=== PATIENT | male | born 1970 | race African-American/Black ===

== ENCOUNTER 2018-07-31 14:05 | Emergency (ER) | payer SELFPAY ==
[~2018-07-31] VITALS: Ht 172.7 cm; Wt 106.1 kg
[~2018-07-31 14:05] MED LIST: AMOX1TAB61 PO; AZIT250T6 PO; OXYC1TAB15 PO; TRIA1TAB3 PO
[2018-07-31] MEDS ORDERED: ONDANSETRON PF 4 MG/2 ML VIAL. IV ONE (14:30)
[2018-07-31] MEDS ORDERED: ASPIRIN 325 MG TABLET PO ONE (14:30)
[2018-07-31] MEDS ORDERED: ORPHENADRINE CITRATE 60 MG/2 ML VIAL. IV ONE (14:45)
[2018-07-31] MEDS ORDERED: DEXAMETHASONE SOD PHOS 20 MG/5 ML VIAL. IV ONE (14:45)
[2018-07-31 14:50] LABS: BASO # 0.1 x10^3/uL (0.0-0.2); BASO % 1 % (0-3); EOS # 0.1 x10^3/uL (0.0-0.7); EOS % 1 % (0-3); HEMATOCRIT 42.8 % (39.0-53.0); HEMOGLOBIN 14.9 g/dL (13.0-17.5); LYMPH # 2.2 x10^3/uL (1.0-4.8); LYMPH % 24 % (24-48); MEAN CORPUSCULAR HEMOGLOBIN 31 pg (25-35); MEAN CORPUSCULAR HGB CONC 35 g/dL (31-37); MEAN CORPUSCULAR VOLUME 89 fL (79-100); MONO # 0.5 x10^3/uL (0.0-1.1); MONO % 6 % (0-9); NEUT # 6.6 x10^3uL (1.8-7.7); NEUT % 70 % (31-73); PLATELET COUNT 235 x10^3/uL (140-400); RED CELL DISTRIBUTION WIDTH 13.7 % (11.5-14.5); WHITE BLOOD COUNT 9.5 x10^3/uL (4.0-11.0)
[2018-07-31 14:52] LABS: CALCIUM 9.4 mg/dL (8.5-10.1); CREATININE 1.2 mg/dL (0.7-1.3); GFR 78.2
[2018-07-31 14:58] LABS: ALBUMIN 4.3 g/dL (3.4-5.0); ALBUMIN/GLOBULIN RATIO 1.2 (1.0-1.7); TOTAL BILIRUBIN 0.4 mg/dL (0.2-1.0)
[2018-07-31 15:03] LABS: PROTHROMBIN TIME PATIENT 12.1 SEC (11.7-14.0)
--- NOTE | 2018-07-31 15:23 | RAD ---
CHEST PA LATERAL CLINICAL INDICATION: RIGHT SIDED CHEST PAIN X TODAY COMPARISON: None FINDINGS: Heart is normal in size. Mild diffuse bilateral interstitial opacities are seen. No focal consolidation. No pneumothorax or pleural effusion. Visualized bony thorax is within normal limits. IMPRESSION: Mild prominence of bilateral interstitium may be secondary to mild interstitial pulmonary edema or atypical/viral infection. Electronically signed by: Serafin Resendez DO (07/31/2018 3:18 PM) [facility]
[2018-07-31 17:22] VITALS: BP 157/95
[2018-07-31] MEDS ORDERED: CYCL10TA2 PO (17:29)
[2018-07-31] MEDS ORDERED: PRED50TA PO (17:29)
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
--- NOTE | 2018-08-01 06:28 | EKG ---
[facility] [address] [place] [address] Test Date: 2018-07-31 Test Time: 14:16:25 Pat Name: VANESSA GOMEZ Department: Room: Gender: M [employer]: : 1970 Requested By: ROHIT GORDILLO Order Number: [id number] Reading MD: Measurements Intervals [place] Rate: 65 P: 58 NV: 196 QRS: 24 QRSD: 70 T: -18 QT: 400 QTc: 421 Interpretive Statements SINUS RHYTHM QRS(T) CONTOUR ABNORMALITY CONSISTENT WITH ANTEROSEPTAL INFARCT PROBABLY OLD T ABNORMALITY IN INFERIOR LEADS ABNORMAL ECG No previous ECG available for comparison
== END 2018-07-31 17:55 | disposition home or self-care (01) ==
LOC: ER 14:05
DX: M54.6 Pain in thoracic spine (principal); I10 Essential (primary) hypertension; M25.511 Pain in right shoulder
CPT/HCPCS: 36415; 71046; 80053; 83735; 84484; 85025; 85610; 93005; 96374; 96375; 99284; J1100; J2360; J2405